=== PATIENT | female | born 1970 | race Caucasian/White ===

== ENCOUNTER 2018-05-04 11:29 | Emergency (ER) | payer OTHER ==
[2018-05-04 12:07] VITALS: BP 114/56; PULSE 81; TEMP 98.2; BMI 25.6
[2018-05-04] MEDS ORDERED: FLUCONAZOLE 100 MG TABLET (UD) PO ONE (13:09)
--- NOTE | 2018-05-04 13:19 | PDOC ---
History of Present Illness - General Chief Complaint: Pain Stated Complaint: PELVIC PAIN Time Seen by Provider: 05/04/18 12:12 History Source: Patient Exam Limitations: No Limitations - History of Present Illness Initial Comments: 05/04/18 13:11 48 year old female with no significant medical history and surgical history of right hand tendon surgery, present with vaginal irritation x 2 weeks. Patient seen by tmd teacher treated with flagyl for bacterial vaginosis and monistat but reports irritation and burning persist in vagina. Denies dysuria Timing/Duration: reports: getting worse Quality: reports: moderate Pain Radiation: reports: no radiation Activities at Onset: reports: no specific activity, sexual intercourse Treatment Prior to Arrive: improves with: analgesics Aggravating Factors: improves with: None Past History - Past Medical History Allergies/Adverse Reactions: Allergies Allergy/AdvReac Type Severity Reaction Status Date / Time Penicillins Allergy Verified 05/04/18 11:55 Home Medications: Ambulatory Orders Doxycycline Monohydrate [Monodox] 100 mg PO Q12H #14 capsule 05/04/18 COPD: No - Immunization History Immunization Up to Date: Yes - Suicide/Smoking/Psychosocial Hx Smoking History: Never smoked Hx Alcohol Use: No Drug/Substance Use Hx: No Abd/GI Specific PMHX - Complaint Specific PMHX Colitis: No Diverticulitis: No Gall Bladder Disease: No GERD: No Hepatitis: No Irritable Bowel Synd (IBS): No Pancreatitis: No GI Ulcer Disease: No Review of Systems - Review of Systems Able to Perform ROS?: Yes Is the patient limited [place] proficient: No Constitutional: No: Chills, Fever Respiratory: No: Cough, Shortness of Breath, Wheezing Cardiac (ROS): No: Chest Pain ABD/GI: No: Abdominal Distended : Yes: Burning, Other (vaginal irritation) Musculoskeletal: No: Back Pain Neurological: No: Headache, Numbness, Paresthesia *Physical Exam - Vital Signs Last Vital Signs Temp Pulse Resp BP Pulse Ox 98.2 F 81 16 114/56 L 99 05/04/18 11:55 05/04/18 11:55 05/04/18 11:55 05/04/18 11:55 05/04/18 11:55 - Physical Exam General Appearance: Yes: Nourished, Appropriately Dressed HEENT: positive: TMs Normal, Pharynx Normal Neck: positive: Supple. negative: Lymphadenopathy (R), Lymphadenopathy (L) Respiratory/Chest: positive: Lungs Clear Cardiovascular: positive: Regular Rhythm, Regular Rate Female Pelvic Exam: positive: normal external exam, cervical os closed, other (+ whitish creamy vaginal discharge in cavity) Extremity: positive: Normal Capillary Refill Neurologic: positive: hogshead hooper II-XII NML intact, Fully Oriented, Alert Moderate Sedation - Procedure Monitoring Vital Signs: Procedure Monitoring Vital Signs Temperature 98.2 F 05/04/18 11:55 Pulse Rate 81 05/04/18 11:55 Respiratory Rate 16 05/04/18 11:55 Blood Pressure 114/56 L 05/04/18 11:55 O2 Sat by Pulse Oximetry (%) 99 05/04/18 11:55 Medical Decision Making - Medical Decision Making 05/04/18 18:38 48 year old female with no significant medical history and surgical history of right hand tendon surgery, present with vaginal irritation x 2 weeks. Plan: pelvic exam genital culture diflucan given rx: doxycyline x 7 days *DC/Admit/Observation/Transfer Diagnosis at time of Disposition: Vaginitis Qualifiers: Chronicity: acute Qualified Code(s): N76.0 - Acute vaginitis - Discharge Dispostion Disposition: HOME Condition at time of disposition: Good Decision to Admit order: No - Prescriptions Prescriptions: Doxycycline Monohydrate [Monodox] 100 mg PO Q12H #14 capsule - Referrals Referrals: Neelima Jalloh MD [Primary Care Provider] - (follow up with stacker tender ) - Patient Instructions Printed Discharge Instructions: DI for Atrophic Vaginitis Additional Instructions: Call financial rep and follow up as needed Return for worsening symptoms - Post Discharge Activity Forms/Work/School Notes: Back to Work
[2018-05-04] MEDS ORDERED: FLUCONAZOLE 100 MG TABLET (UD) ONE (13:22)
== END 2018-05-04 13:44 | disposition home or self-care (01) ==
LOC: JERFT 11:29
DX: N76.0 Acute vaginitis (principal)
CPT/HCPCS: 84703; 87070; 87086; 87186; 87205; 99281-25

== ENCOUNTER 2020-02-14 18:50 | Emergency (ER) | payer OTHER ==
[2020-02-14 19:18] VITALS: BP 109/65; PULSE 88; BMI 28.3
[2020-02-14] MEDS ORDERED: ACETAMINOPHEN 1000 MG/100 ML BAG IVPB ONE (20:09)
[2020-02-14] MEDS ORDERED: ACETAMINOPHEN INJECTION 100 ML IVPB ONE (20:21)
[2020-02-14 20:47] LABS: BASO % 1.2 % (0-2.0); HEMATOCRIT 36.1 % (32.4-45.2); HEMOGLOBIN 11.9 GM/dL (10.7-15.3); LYMPH % 22.2 % (8-40); MCH 28.7 pg (25.7-33.7); MCHC 32.9 g/dl (32.0-36.0); MEAN CELL VOLUME 87.5 fl (80-96); MONO % 7.2 % (3.8-10.2); NEUT % 63.4 % (42.8-82.8); PLATELET COUNT 280 K/MM3 (134-434); RBC 4.13 M/mm3 (3.60-5.2); RDW 13.7 % (11.6-15.6); WHITE BLOOD COUNT 6.4 K/mm3 (4.0-10.0)
[2020-02-14 21:06] LABS: HCG,QUALITATIVE URINE Negative
[2020-02-14 21:11] LABS: EPI CELLS 17 /uL (0-25.1); HYALINE CASTS 0 /uL (0-3.1); URINE APPEARANCE CLEAR; URINE BACTERIA 114 /uL (0-1359); URINE BILIRUBIN NEGATIVE (NEGATIVE); URINE COLOR YELLOW; URINE GLUCOSE (UA) NEGATIVE (NEGATIVE); URINE KETONE NEGATIVE (NEGATIVE); URINE LEUK ESTERASE 2+ (NEGATIVE); URINE NITRITE NEGATIVE (NEGATIVE); URINE PROTEIN NEGATIVE (NEGATIVE); URINE RBC 16 /uL (0-23.9); URINE UROBILINOGEN 0.2 mg/dL (0.2-1.0); URINE WBC 8 /uL (0-25.8)
[2020-02-14 21:17] LABS: CALCIUM 8.5 mg/dL (8.5-10.1)
[2020-02-14 21:18] LABS: ALBUMIN 3.7 g/dl (3.4-5.0); BLOOD UREA NITROGEN 9.9 mg/dL (7-18)
[2020-02-14 21:21] LABS: CREATININE 0.8 mg/dL (0.55-1.3)
[2020-02-14 21:23] LABS: BILIRUBIN,TOTAL 0.2 mg/dL (0.2-1); TOT PROT 7.2 g/dl (6.4-8.2)
[2020-02-14] MEDS ORDERED: KETOROLAC TROMETHAMINE 30 MG/1 ML VIAL IVPUSH ONE (23:16)
[2020-02-15] MEDS ORDERED: KETOROLAC TROMETHAMINE 30 MG/1 ML VIAL ONE (00:06)
[2020-02-15] MEDS ORDERED: FLUCONAZOLE 150 MG TABLET PO ONE ×2 (00:14→00:20)
== END 2020-02-15 00:46 | disposition home or self-care (01) ==
LOC: JER 18:50
PROC: 3E033NZ Introduction of Analgesics, Hypnotics, Sedatives into Peripheral Vein, Percutaneous Approach (ICD-10-PCS; principal; 2020-02-14)
PROC: 3E0333Z Introduction of Anti-inflammatory into Peripheral Vein, Percutaneous Approach (ICD-10-PCS; 2020-02-14)
DX: N77.1 Vaginitis, vulvitis and vulvovaginitis in diseases classified elsewhere (principal); R10.31 Right lower quadrant pain; N83.209 Unspecified ovarian cyst, unspecified side
CPT/HCPCS: 36415; 74177-TC; 76775-TC; 76856-TC; 80053; 81003; 84703; 85025; 87086; 99285-25; J0131; Q9967